=== PATIENT | male | born 1940 | race Caucasian/White ===

== ENCOUNTER 2016-12-19 18:08 | Emergency (ER) | payer MEDICARE ==
[~2016-12-19] VITALS: Ht 177.8 cm; Wt 95.4 kg
[2016-12-19 18:17] VITALS: BP 154/84; PULSE 70; RESP 16; TEMP 97.8; O2SAT 97
[2016-12-19] MEDS ORDERED: ACETAMINOPHEN/CODEINE 300 MG/30 MG TAB PO ONE (18:30)
--- NOTE | 2016-12-19 18:34 | PD ---
HPI Chief Complaint: Musculoskeletal Complaint Time Seen by Provider: 18:29 Travel History International Travel<30 days: No Contact w/Intl Traveler<30days: No Traveled to known affect area: No History of Present Illness HPI 76-year-old male here for evaluation of right arm pain. He reports a prior to arrival he was attempting to tighten the vault with a wrench in his right hand when he felt a tearing sensation in his medial proximal right arm. He now has pain in the medial proximal right arm which is an aching pain which is worse with movement. He denies any numbness or tingling. He has no other complaints at this time. PFSH Past Medical History ?: Not Social History Alcohol Use: Yes Tobacco Use: No Allergies-Medications (Allergen,Severity, Reaction): Coded Allergies: Penicillins (Verified Allergy, Unknown, 12/19/16) aspirin (Verified Allergy, Unknown, 12/19/16) Reported Meds & Prescriptions Reported Meds & Active Scripts Active Tylenol-Codeine #3 (Acetaminophen-Codeine) 300-30 mg Tab 1 Tab PO Q4H PRN Reported Flomax (Tamsulosin HCl) 0.4 Mg Cap 0.4 Mg PO HS Review of Systems General / Constitutional: No: Fever, Chills Musculoskeletal: Positive: Limited ROM, Pain Skin: Positive Other (denies open wounds) Neurologic: No: Paresthesia Physical Exam Narrative GENERAL: Well-developed well-nourished male in no acute distress SKIN: Warm and dry. No bruising or soft tissue swelling HEAD: Atraumatic. Normocephalic. EYES: Pupils equal and round. No scleral icterus. No injection or drainage. ENT: No nasal bleeding or discharge. Mucous membranes pink and moist. NECK: Trachea midline. No JVD. CARDIOVASCULAR: Regular rate and rhythm. No murmur appreciated. RESPIRATORY: No accessory muscle use. Clear to auscultation. Breath sounds equal bilaterally. GASTROINTESTINAL: Abdomen soft, non-tender, nondistended. MUSCULOSKELETAL: No obvious deformities. There is some tenderness to palpation to the medial aspect of the proximal right arm inferior to the shoulder joint. There is no tenderness to palpation to the belly of the right biceps or triceps musculature. The tendons appear intact with no obvious deformity. The patient maintains full flexion and extension of the right arm against resistance. He has some pain with adduction of the right arm against resistance primarily. NEUROLOGICAL: Awake and alert. No obvious cranial nerve deficits. Motor grossly within normal limits. Normal speech. Data Data Last Documented VS Vital Signs Date Time Temp Pulse Resp B/P (MAP) Pulse Ox O2 Delivery O2 Flow Rate FiO2 12/19/16 18:17 97.8 70 16 154/84 (107) 97 Orders Orders Acetamin-Codeine 300-30 Mg (Tylenol-Code (12/19/16 18:30) Support Splint (12/19/16 18:29) MDM Medical Decision Making Medical Screen Exam Complete: Yes Emergency Medical Condition: Yes Medical Record Reviewed: Yes Differential Diagnosis Muscle strain, muscle tear, tendon rupture, humeral fracture Narrative Course This is a 76-year-old male who was tightening a bolt with a wrench in his right hand when he felt a tearing pain in his medial right arm. His examination and history are consistent with a strain to the right proximal arm. There is no evidence of biceps or triceps tendon rupture. There is nothing to suggest a fracture to the humerus. The plan at this time is to provide the patient with a sling for short-term use. 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 He'll be therefore discharged with a short course of Tylenol with codeine for pain. Recommend follow-up with primary care physician 1 week, possible referral to physical therapist as an outpatient by primary care physician if symptoms persist. Diagnosis Primary Impression: Strain of right upper arm Qualified Codes: S46.911A - Strain of unspecified muscle, fascia and tendon at shoulder and upper arm level, right arm, initial encounter Additional Instructions: Avoid strenuous activity. Sling as needed. Perform passive range of motion activities daily with right shoulder. Tylenol with codeine for breakthrough pain. Do not drive or drink alcohol when taking this medication. Follow-up with primary care physician in one week. Return for any emergent medical conditions. Med/Other Pt SpecificInfo: Prescription(s) given Scripts Acetaminophen-Codeine (Tylenol-Codeine #3) 300-30 mg Tab 1 TAB PO Q4H Y for PAIN, #20 TAB 0 Refills Prov: Glenny Grimaldo MD 12/19/16 Disposition: 01 DISCHARGE HOME Condition: Stable Fer Live Dec 19, 2016 18:34
[2016-12-19] MEDS ORDERED: TAMS5CAP PO (18:57)
[2016-12-19] MEDS ORDERED: TYLETAB34 PO (19:11)
== END 2016-12-19 19:22 | disposition home or self-care (01) ==
LOC: PHEFT 18:08
DX: S46.911A Strain of unspecified muscle, fascia and tendon at shoulder and upper arm level, right arm, initial encounter (principal); X50.0XXA Overexertion from strenuous movement or load, initial encounter
CPT/HCPCS: 99283